=== PATIENT | female | born 1985 ===

== ENCOUNTER → 2022-07-20 | Day surgery (SDC) | payer BC ==
[~2022-07-20] MED LIST: Dexamethasone 4 MG/ML 5 ML MDV IVPUSH ONE; Famotidine 20 MG/2 ML SDV IVPUSH ONE; Ketorolac 30 MG/ML SDV IVPUSH ONE; Lactated Ringers 1,000 ML IV ONE; Methylergonovine 0.2 MG/1 ML Amp IV ONE; Ondansetron 4 MG/2 ML SDV IVPUSH ONE; Propofol 200 MG/20 ML SDV IV ONE; Rocuronium Bromide 50 MG/5 ML Syringe IVPUSH ONE; Sugammadex Sodium 200 MG/2 ML VIAL IV ONE; fentaNYL 250 MCG/5 ML SDV IVPUSH ONE
== END ==
LOC: MW.SDS 07:00
PROVIDERS: ATTEND Obstetrics & Gynecology
DX: O02.1 Missed abortion (principal); Z79.899 Other long term (current) drug therapy; Z90.49 Acquired absence of other specified parts of digestive tract; Z98.890 Other specified postprocedural states; Z87.891 Personal history of nicotine dependence
CPT/HCPCS: 59820; J1100; J1885; J2210; J2405; J2704; J3010; J3490; J7120; 01965